=== PATIENT | male | born 1985 | race African-American/Black ===

== ENCOUNTER 2022-04-23 16:06 | Emergency (ER) | payer OTHER, SELFPAY ==
[2022-04-23 16:19] VITALS: BP 132/81; PULSE 85; RESP 14; TEMP 36.8; O2SAT 100; BMI 25.0
--- NOTE | 2022-04-23 16:34 | DI.US.S_ITS ---
PROCEDURE: US SCROTUM INDICATIONS: LEFT TESTICULAR PAIN TECHNIQUE: Real-time scanning was performed of the scrotum and testicles, with image documentation. Color and pulse Doppler interrogation was performed of both testicles. COMPARISON: None. FINDINGS: Right: Testicle is normal in size at 3.7 x 2.1 x 2.7 cm, and demonstrates multiple echogenic foci within it. Epididymis is normal in overall size and morphology. No hydrocele or varicoceles. Overlying scrotal skin is normal in thickness. Left: Testicle is normal in size at 3.7 x 2.4 x 2.8 cm. Multiple echogenic foci can be seen within the left testicle. The left epididymal tail is prominent and corresponds to the palpable abnormality. No hydrocele. Overlying scrotal skin is normal in thickness. Doppler: Color and pulse Doppler demonstrate normal and symmetric arterial flow in both testicles. There is an apparent large left-sided varicocele. Prominent left-sided scrotal vessels can be seen. IMPRESSION: Negative for testicular torsion. The testicular vascularity appears normal and symmetric. Apparent large left-sided varicocele. Prominent left-sided epididymal tail, which corresponds to the palpable abnormality. 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 Dictated by: Blaze Macario M.D. on 04/23/2022 at 18:03 Approved by: Blaze Macario M.D. on 04/23/2022 at 18:05
--- NOTE | 2022-04-23 16:34 | DI.US.S_ITS ---
PROCEDURE: US ABDOMEN LIMITED INDICATIONS: LEFT GROIN PAIN - please evaluate for HERNIA TECHNIQUE: Real-time focused scanning was performed of the abdomen, with image documentation. COMPARISON: [facility], , US SCROTUM, 04/23/2022, 18:19. FINDINGS: Scanning is performed of the left groin, including with Valsalva maneuver. No findings of hernia are seen. IMPRESSION: Negative for left groin hernia. Dictated by: Blaze Macario M.D. on 04/23/2022 at 18:06 Approved by: Blaze Macario M.D. on 04/23/2022 at 18:07
[2022-04-23 17:21] LABS: RBC Urine 0-1/HPF (0-5/HPF); WBC Urine 5-10/HPF (0-5/HPF)
[2022-04-23 17:22] LABS: Amorphous Sediment Urine 1+; Bacteria Urine Occasional (0-1); Mucus Urine 1+ (Negative); Squamous Epithelial Cell Urine 0-1 /HPF (0-5/HPF)
[2022-04-23 17:23] LABS: Culture Indicated Urine Specimen Cultured; Sperm Urine FEW NON-MOTIL
--- NOTE | 2022-04-23 18:51 | ED.MALEGU ---
HPI - Male Genitourinary General Chief complaint: Urogenital-Male Stated complaint: tender lt testicle, hx of cyst Time Seen by Provider: 04/23/22 18:04 Source: patient Mode of arrival: Ambulatory History of Present Illness HPI Narrative: Patient is a 36-year-old male with no past medical history presenting today with left testicular pain. He said it started abruptly around 130 or 2:00 p.m. after intercourse. He said it was nothing unusual but feels like it is red and swollen. No female discharge in concern for STD. His quite sensitive to touch. Related Data Previous Rx's Medication Instructions Recorded hydrocodone 5 mg-acetaminophen 325 1 tab PO Q6H PRN pain #10 tabs 04/23/22 mg tablet Allergies Allergy/AdvReac Type Severity Reaction Status Date / Time No Known Drug Allergies Allergy Verified 04/23/22 16:26 Review of Systems Review of Systems Narrative: GENERAL: Denies chills,fever HEENT: Denies throat pain RESPIRATORY: Denies dyspnea, cough, wheezing CARDIOVASCULAR: Denies chest pain, palpitations : See HPI GASTROINTESTINAL: Denies nausea, vomiting MUSCULOSKELETAL: Denies extremity pain, injury SKIN: No rash, no laceration, no pruritus NEUROLOGIC: Denies weakness, dizziness, headache, numbness 8 point review of systems is negative except for those stated above and HPI Patient History Social History Smoking Status: Current every day smoker Smoking Status: Current every day smoker tobacco type: cigarettes alcohol intake frequency: holidays/special occasions only Substance Use Type: marijuana Exam Initial Vital Signs Initial Vital Signs: Vital Signs Temperature 98.2 F 04/23/22 16:19 Pulse Rate 85 04/23/22 16:19 Respiratory Rate 14 04/23/22 16:19 Blood Pressure 132/81 04/23/22 16:19 Pulse Oximetry 100 04/23/22 16:19 Oxygen Delivery Method 04/23/22 16:19 GENERAL: Well-appearing, well-nourished and in no acute distress. CARDIOVASCULAR: peripheral pulses in tact, cap refill <2 sec RESPIRATORY: No respiratory distress, speaks in full sentences without difficulty ABDOMEN: Soft, nontender, no guarding or rebound : Nurse Debbie in room, left testicle is tender scrotum area is slightly swollen minimally erythematous no obvious abscess or fluctuation no hernia EXTREMITIES: Normal range of motion, no clubbing or edema. Neurovascularly intact NEUROLOGICAL: Cranial nerves II through XII grossly intact. Normal gait and speech. SKIN: Warm, dry, no petechiae, no rashes or lesions. Course Orders Ordered: Discontinued Medications Ketorolac Tromethamine (Ketorolac 30 Mg/Ml Vial) 30 mg IM NOW ONE Stop: 04/23/22 18:52 Last Admin: 04/23/22 19:21 Dose: 30 mg Documented By: AP Vital Signs Vital signs: Vital Signs - 8 hr 04/23/22 16:19 Temperature 98.2 F Pulse Rate 85 Respiratory Rate 14 Blood Pressure 132/81 Pulse Oximetry 100 Oxygen Delivery Method Room Air MDM - Male Genitourinary Lab Data Labs: Lab Results 04/23/22 Range/Units 16:42 Urine RBC 0-1/hpf (0-5/HPF) Urine WBC 5-10/hpf H (0-5/HPF) Ur Squamous Epith Cells 0-1 /hpf (0-5/HPF) Amorphous Sediment 1+ Urine Bacteria Occasional (0-1) (None) Urine Mucus 1+ H (Negative) Urine Sperm Few non-motil Ur Culture Indicated? Specimen cultured Urine Dip Bedside Urine Glucose Negative Bedside Urine Bilirubin - Negative Bedside Urine Ketone - Negative Urine Specific [place] 1.025 Bedside Urine Occult Blood +/- Bedside Urine pH 6.0 Bedside Urine Protein + 30 Bedside Urine Urobilinogen - Negative Bedside Urine Nitrite - Negative Bedside Urine Leukocytes +/- 15 Esterase Imaging Data US scrotum: Radiologist's Impression: Signed Patient: Khadar Baca MR#: [id number] : 1985 Acct:[id number] Age/Sex: 36 / M Date of Service: 04/23/22 Loc: ED Accession Number: [id number] ?? Procedure: US scrotum Ordering Provider: Elvi Leblanc P.A-C PROCEDURE:? US SCROTUM ? INDICATIONS:? LEFT TESTICULAR PAIN ? TECHNIQUE:? Real-time scanning was performed of the scrotum and testicles, with image documentation.? Color and pulse Doppler interrogation was performed of both testicles.? ? COMPARISON:? None. ? FINDINGS:? ? Right:? Testicle is normal in size at 3.7 x 2.1 x 2.7 cm, and demonstrates multiple echogenic foci within it.? Epididymis is normal in overall size and morphology.? No hydrocele or varicoceles.? Overlying scrotal skin is normal in thickness.? ? Left:? Testicle is normal in size at 3.7 x 2.4 x 2.8 cm.? Multiple echogenic foci can be seen within the left testicle.? ? The left epididymal tail is prominent and corresponds to the palpable abnormality.? No hydrocele.? Overlying scrotal skin is normal in thickness.? ? Doppler:? Color and pulse Doppler demonstrate normal and symmetric arterial flow in both testicles.? There is an apparent large left-sided varicocele. ? Prominent left-sided scrotal vessels can be seen. ? ? IMPRESSION:? Negative for testicular torsion.? The testicular vascularity appears normal and symmetric. ? Apparent large left-sided varicocele. ? Prominent left-sided epididymal tail, which corresponds to the palpable abnormality. ? 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 ? Dictated by: Blaze Macario M.D. on 04/23/2022 at 18:03 ? ? US - abdomen: Radiologist's Impression: Signed Patient: Khadar Baca MR#: [id number] : 1985 Acct:[id number] Age/Sex: 36 / M Date of Service: 04/23/22 Loc: ED Accession Number: [id number] ?? Procedure: US abdomen limited Ordering Provider: Elvi Leblanc P.A-C PROCEDURE: US ABDOMEN LIMITED ? INDICATIONS:? LEFT GROIN PAIN - please evaluate for HERNIA ? TECHNIQUE:? Real-time focused scanning was performed of the abdomen, with image documentation.? ? COMPARISON:? [facility], US SCROTUM, 04/23/2022, 18:19. ? FINDINGS:? Scanning is performed of the left groin, including with Valsalva maneuver.? No findings of hernia are seen. ? ? ? IMPRESSION:? Negative for left groin hernia. ? ? Dictated by: Blaze Macario M.D. on 04/23/2022 at 18:06 ? ? MDM Narrative Medical decision making narrative: Patient is complaining of left testicular pain which started suddenly after intercourse. No obvious erythema abscess or torsion. Ultrasound does reveal large varicocele. Recommend supportive care and follow-up with urology. Is given Toradol and pain medication Discharge Plan Departure Patient Disposition: Home Clinical Impression: Varicocele Instructions: DI for Varicocele Activity Restrictions/Additional Instructions: *You have been diagnosed with varicocele *What to do: At this time you have an enlarged vein in left testicle causing pain. Recommend supportive underwear, may require surgery could years is quite large. Will need follow-up with Urology. You may attempt to try ice it may help *Continue to take medications as directed Ibuprofen 600 mg every 6 hours if needed for [id number] pain [place] 1 tablet every 6 hours if needed for severe pain *Follow up with your primary care provider in 2-3 days or call [phone] Follow-up with Dr. Holland urology, call for appointment tomorrow *Return to ER if you should have increasing pain swelling redness or any new, worsening or concerning symptoms CONTROLLED SUBSTANCE DISCHARGE (Narcotoic/benzodiazepine/Flexeril/Phenergan) 1. You have been prescribed narcotic medications, it does have acetaminophen/Tylenol/paracetamol in it, DO NOT TAKE MORE THAN 4,00mg in 24 hours of Tylenol. TRAMADOL DOES NOT CONTAIN TYLENOL 2. Please understand that we cannot provide further refills of narcotics, benzodiazepines or controlled substances through the ED and her pain management will need to be through your provider. 3. While on these medications you cannot drive or operate heavy machinery. 4. You cannot sign legal documents or perform any duties such as this. 5. As long as you're taking opiate pain medications he should also be taking a stool softener such as Colace, Dulcolax, MiraLAX or prune juice, to help avoid constipation. Prescriptions: New hydrocodone-acetaminophen 5-325 mg tablet 1 tab PO Q6H PRN (Reason: pain) Qty: 10 0RF Referrals: Sourav Holland MD [Physician] - Stand Alone Forms: Work Release Note Visit Report Forms: Patient Portal/API
[2022-04-23] MEDS: KETOROLAC 30 MG/ML VIAL IM (19:21)
== END 2022-04-23 19:29 | disposition home or self-care (01) ==
PROVIDERS: Emergency Medicine; Emergency Provider Emergency Medicine
DX: I86.1 Scrotal varices (principal)
CPT/HCPCS: 76705; 76870; 81003; 81015; 87086; 93976; 96372; 99283; J1885

== ENCOUNTER 2022-05-04 17:50 | Emergency (ER) | payer OTHER, SELFPAY ==
[2022-05-04 17:59] VITALS: BP 121/71; PULSE 66; RESP 16; TEMP 36.5; O2SAT 100; BMI 26.6
== END 2022-05-04 19:15 | disposition left against medical advice (07) ==
PROVIDERS: Emergency Provider Emergency Medicine
DX: N50.819 Testicular pain, unspecified (principal)
CPT/HCPCS: 99281

== ENCOUNTER 2022-09-13 18:29 | Emergency (ER) | payer OTHER, SELFPAY ==
[2022-09-13 18:53] VITALS: BP 120/71; PULSE 80; RESP 16; TEMP 36.9; O2SAT 95; BMI 23.5
--- NOTE | 2022-09-13 19:03 | DI.US.S_ITS ---
PROCEDURE: US SCROTUM INDICATIONS: LEFT TESTICULAR SWELLING TECHNIQUE: Real-time scanning was performed of the scrotum and testicles, with image documentation. Color and pulse Doppler interrogation was performed of both testicles. COMPARISON: [facility], , US SCROTUM, 04/23/2022, 18:19. FINDINGS: Right: Testicle measures 3.7 x 2.1 x 3.0 cm. Diffuse echogenic foci are redemonstrated within the testicle consistent with microlithiasis. No discrete mass identified. Epididymis is normal in overall size and morphology. There is a minimal hydrocele. Any falls last 10 ascending ago began strong No varicoceles. Overlying scrotal skin is normal in thickness. Left: Testicle measures 4.7 x 2.0 x 2.9 cm. Diffuse echogenic foci are redemonstrated within the testicle consistent with microlithiasis. No discrete mass identified. Epididymis is normal in overall size and morphology. No hydrocele. There is a left hydrocele measuring up to 0.4 cm. Overlying scrotal skin is normal in thickness. Doppler: Color and pulse Doppler demonstrate normal and symmetric arterial flow in both testicles. IMPRESSION: 1. Prominent left varicocele redemonstrated. 2. No evidence of testicular torsion. 3. Diffuse bilateral testicular microlithiasis redemonstrated. The findings are commonly benign but have been reported in association with seminomas. No discrete testicular mass identified on the current study. Dictated by: Getachew Oliveira M.D. on 09/13/2022 at 20:24 Approved by: Getachew Oliveira M.D. on 09/13/2022 at 20:28
--- NOTE | 2022-09-13 21:25 | ED_ITS ---
HPI - General Adult General Chief complaint: Urogenital-Male Stated complaint: Swollen and painful genitials Time Seen by Provider: 09/13/22 19:52 Source: patient Mode of arrival: Ambulatory History of Present Illness HPI narrative: Patient is a 36 old male who has a known history of a left-sided varicocele. He has been seen by Urology. He was told by the urologist that if the varicocele ever returned that he would need to have surgery on this. Proximally 3 days ago he stated that he sneezed and afterwards has had swelling and some discomfort to the left testicle that is consistent with the varicocele. He is not having any problems urinating. Related Data Previous Rx's Medication Instructions Recorded hydrocodone 5 mg-acetaminophen 325 1 tab PO Q6H PRN pain #10 tabs 04/23/ mg tablet Allergies Allergy/AdvReac Type Severity Reaction Status Date / Time No Known Drug Allergies Allergy Verified 09/13/22 18:59 Review of Systems Gastrointestinal Gastrointestinal: Reports system reviewed and no additional complaints, except as documented Genitourinary Genitourinary: Reports system reviewed and no additional complaints, except as documented Integumentary/Breasts Skin/Breast: Reports system reviewed and no additional complaints, except as documented Patient History Social History Smoking Status: Current every day smoker Smoking Status: Current every day smoker tobacco type: cigarettes alcohol intake frequency: holidays/special occasions only Substance Use Type: marijuana Exam Initial Vital Signs Initial Vital Signs: Vital Signs Temperature 98.4 F 09/13/22 18:53 Pulse Rate 80 09/13/22 18:53 Respiratory Rate 16 09/13/22 18:53 Blood Pressure 120/71 09/13/22 18:53 Pulse Oximetry 95 09/13/22 18:53 Oxygen Delivery Method 09/13/22 18:53 GI Inspection: normal to inspection Palpation: soft, No firm and No tender External: normal external exam Penis: normal penis Scrotum: not erythematous, no scrotal swelling and varicocele on the left Testes: normal Skin General: no rashes or lesions noted Neuro General: patient alert, patient awake and moves all extremities Extrem General: capillary refill normal Course Orders Ordered: ED Orders 09/13/22 19:03 US scrotum Stat Vital Signs Vital signs: Vital Signs - 8 hr 09/13/22 18:53 Temperature 98.4 F Pulse Rate 80 Respiratory Rate 16 Blood Pressure 120/71 Pulse Oximetry 95 Oxygen Delivery Method Room Air Medical Decision Making Medical Records Medical records reviewed: Yes I reviewed the patient's medical records. Lab Data Lab results reviewed: Yes I reviewed the patient's lab results. Labs: Urine Dip Bedside Urine Glucose Negative Bedside Urine Bilirubin - Negative Bedside Urine Ketone - Negative Urine Specific [place] 1.010 Bedside Urine Occult Blood - Negative Bedside Urine pH 7 Bedside Urine Protein +/- 15 Bedside Urine Urobilinogen - Negative Bedside Urine Nitrite - Negative Bedside Urine Leukocytes - Negative Esterase Point of care testing: Urine Dip Bedside Urine Glucose Negative Bedside Urine Bilirubin - Negative Bedside Urine Ketone - Negative Urine Specific [place] 1.010 Bedside Urine Occult Blood - Negative Bedside Urine pH 7 Bedside Urine Protein +/- 15 Bedside Urine Urobilinogen - Negative Bedside Urine Nitrite - Negative Bedside Urine Leukocytes - Negative Esterase Imaging Data scrotal US: Radiologist's Impression: PROCEDURE:? US SCROTUM ? INDICATIONS:? LEFT TESTICULAR SWELLING ? TECHNIQUE:? Real-time scanning was performed of the scrotum and testicles, with image documentation.? Color and pulse Doppler interrogation was performed of both testicles.? ? COMPARISON:[facility], , US SCROTUM, 04/23/2022, 18:19. ? FINDINGS:? ? Right:? Testicle measures 3.7 x 2.1 x 3.0 cm.? Diffuse echogenic foci are redemonstrated within the testicle consistent with microlithiasis.? No discrete mass identified.? Epididymis is normal in overall size and morphology.? There is a minimal hydrocele.? Any falls last 10 ascending ago began strong? No varicoceles.? Overlying scrotal skin is normal in thickness.? ? Left:? Testicle measures 4.7 x 2.0 x 2.9 cm.? Diffuse echogenic foci are redemonstrated within the testicle consistent with microlithiasis.? No discrete mass identified.? Epididymis is normal in overall size and morphology.? No hydrocele.? There is a left hydrocele measuring up to 0.4 cm. Overlying scrotal skin is normal in thickness.? ? Doppler:? Color and pulse Doppler demonstrate normal and symmetric arterial flow in both testicles.? ? IMPRESSION:? ? 1. Prominent left varicocele redemonstrated. ? 2. No evidence of testicular torsion. ? 3. Diffuse bilateral testicular microlithiasis redemonstrated.? The findings are commonly benign but have been reported in association with seminomas. No discrete testicular mass identified on the current study. MDM Narrative Medical decision making narrative: Urinalysis is unremarkable. Ultrasound does show varicocele but no testicular torsion. His exam was consistent with a varicocele. Discussed with the patient that he will need to follow-up with urology. He has a urologist that he is seen in the past and I recommended that he contact the urologist office for follow-up however he was given contact information for a local urologist he would prefer. He is not have any problems urinating. We discussed conservative measures that he could do at home for his symptoms. He was given return precautions. He expressed understanding and agreement. Discharge Plan Departure Patient Disposition: Home Clinical Impression: Left varicocele Instructions: DI for Varicocele Activity Restrictions/Additional Instructions: I recommend that you contact a urologist for a follow-up. Also recommend supportive clothing and Tylenol/ibuprofen for any discomfort. No restrictions on activities other than avoiding activities that make the discomfort worse. Re turn to the emergency department for new symptoms. Prescriptions: No Action hydrocodone-acetaminophen 5-325 mg tablet 1 tab PO Q6H PRN (Reason: pain) Qty: 10 0RF Referrals: Sourav Holland MD [Physician] - Stand Alone Forms: Patient Portal/API, Work Release Note
--- NOTE | 2022-09-13 21:40 | PC.NURSE ---
seen and evaluated per
== END 2022-09-13 21:41 | disposition home or self-care (01) ==
PROVIDERS: Emergency Provider Emergency Medicine
DX: I86.1 Scrotal varices (principal)
CPT/HCPCS: 76870; 81003; 93975; 99283

== ENCOUNTER 2022-11-27 16:00 | Emergency (ER) | payer OTHER, SELFPAY ==
[2022-11-27 16:16] VITALS: BP 120/68; PULSE 73; RESP 16; TEMP 37; O2SAT 100; BMI 26.6
[2022-11-27 17:00] LABS: Bacteria Urine Occasional (0-1); RBC Urine 1-5/HPF (0-5/HPF); WBC Urine 1-5/HPF (0-5/HPF)
[2022-11-27 17:01] LABS: Mucus Urine 1+ (Negative)
--- NOTE | 2022-11-27 17:45 | ED.MALEGU ---
HPI - Male Genitourinary <Jerald Maza PA-C - Last Filed: 11/27/22 19:26> General Chief complaint: Urogenital-Male Stated complaint: Blood clot in urine, pink urine, pain/trobbing Time Seen by Provider: 11/27/22 17:34 Source: patient Mode of arrival: Ambulatory History of Present Illness HPI Narrative: This is a 37-year-old male presents emergency department due to reported blood in his urine this morning. Patient states that when he was urinating this morning he noticed some kind of blood clot come from his penis. He also reports a dull aching pain to his bilateral flanks as well as left groin area. Denies any nausea, vomiting, fevers, or any other concerning signs or symptoms. Related Data Previous Rx's Medication Instructions Recorded hydrocodone 5 mg-acetaminophen 325 1 tab PO Q6H PRN pain #10 tabs 04/23/22 mg tablet Allergies Allergy/AdvReac Type Severity Reaction Status Date / Time No Known Drug Allergies Allergy Verified 09/13/22 18:59 Review of Systems <Jerald Maza PA-C - Last Filed: 11/27/22 19:26> Review of Systems Narrative: GENERAL: Denies chills, fatigue, malaise, fever, sweats. HEENT: Denies sinus pain, ear pain, sore throat, difficulty swallowing, dizziness. RESPIRATORY: Denies dyspnea, cough, wheezing, hemoptysis, sputum. CARDIOVASCULAR: Denies chest pain, palpitations, orthopnea, edema, GASTROINTESTINAL: Reports left-sided abdominal pain. Denies nausea, vomiting, abdominal pain, diarrhea, constipation, melena. : Reports hematuria, Denies dysuria, frequency, incontinence, , urinary retention. MUSCULOSKELETAL: Reports bilateral flank pain otherwise denies weakness, joint pain, or bony pain SKIN: Denies rash, skin lesions, or other NEUROLOGIC: Denies weakness, headache, numbness, change in speech, confusion, seizures, incoordination. PSYCHIATRIC: No concerning psychosocial issues. 12 point review of systems is negative except for those stated above Patient History <Jerald Maza PA-C - Last Filed: 11/27/22 19:26> Social History Smoking Status: Current every day smoker Smoking Status: Current every day smoker tobacco type: cigarettes alcohol intake frequency: holidays/special occasions only Substance Use Type: marijuana Exam <Jerald Maza PA-C - Last Filed: 11/27/22 19:26> Narrative Exam Narrative: GENERAL: Well-developed patient, in mild distress. HEAD: Atraumatic. Normocephalic. EYES: Pupils equal round and reactive. Extraocular motions intact. No scleral icterus. No injection or drainage. ENT: Nose without bleeding, purulent drainage. Throat without erythema, tonsillar hypertrophy or exudate. Airway patent. NECK: Trachea midline. Non tender CARDIOVASCULAR: Regular rate and rhythm without murmurs, gallops, or rubs. RESPIRATORY: Clear to auscultation. Breath sounds equal bilaterally. No wheezes, rales, or rhonchi. GASTROINTESTINAL: Abdomen soft, mild tenderness to palpation to left lower quadrant, nondistended. EXTREMITIES: No edema or joint tenderness. BACK: Nontender without deformity or crepitance. Mild bilateral flank tenderness to palpation. NEURO: AOx3. SKIN: No rash or erythema of visible areas Initial Vital Signs Initial Vital Signs: Vital Signs Temperature 98.6 F 11/27/22 16:16 Pulse Rate 73 11/27/22 16:16 Respiratory Rate 16 11/27/22 16:16 Blood Pressure 120/68 11/27/22 16:16 Pulse Oximetry 100 11/27/22 16:16 Oxygen Delivery Method Room Air 11/27/22 16:16 <Zack Hernandez MD - Last Filed: 12/05/22 03:28> Initial Vital Signs Initial Vital Signs: Vital Signs Temperature 98.6 F 11/27/22 16:16 Pulse Rate 73 11/27/22 16:16 Respiratory Rate 16 11/27/22 16:16 Blood Pressure 120/68 11/27/22 16:16 Pulse Oximetry 100 11/27/22 16:16 Oxygen Delivery Method Room Air 11/27/22 16:16 Course <Jerald Maza PA-C - Last Filed: 11/27/22 19:26> Orders Ordered: ED Orders 11/27/22 16:20 Urine Culture Stat Urine Microscopic Stat 11/27/22 17:56 CT kidney ureter bladder (KUB) Stat 11/27/22 18:35 CBC Auto Diff [Complete Blood Count AUTO DIFF] Stat CMP [Comprehensive Metabolic Panel] Stat Vital Signs Vital signs: Vital Signs - 8 hr 11/27/22 16:16 11/27/22 19:23 Temperature 98.6 F Pulse Rate 73 72 Respiratory Rate 16 Blood Pressure 120/68 119/73 Pulse Oximetry 100 100 Oxygen Delivery Method Room Air Room Air <Zack Hernandez MD - Last Filed: 12/05/22 03:28> Orders Ordered: ED Orders 11/27/22 16:20 Urine Culture Stat Urine Microscopic Stat 11/27/22 17:56 CT kidney ureter bladder (KUB) Stat 11/27/22 18:35 CBC Auto Diff [Complete Blood Count AUTO DIFF] Stat CMP [Comprehensive Metabolic Panel] Stat Vital Signs Vital signs: Vital Signs - 8 hr 11/27/22 16:16 11/27/22 19:23 Temperature 98.6 F Pulse Rate 73 72 Respiratory Rate 16 Blood Pressure 120/68 119/73 Pulse Oximetry 100 100 Oxygen Delivery Method Room Air Room Air MDM - Male Genitourinary <Jerald Maza PA-C - Last Filed: 11/27/22 19:26> Lab Data 11/27/22 19:04 11/27/22 18:40 Labs: Lab Results 11/27/22 11/27/22 11/27/22 Range/Units 16:20 18:40 19:04 WBC 5.3 (4.5-11.0) X10^3/uL RBC 5.05 (4.5-5.9) X10^6/uL Hgb 13.1 L (13.5-17.5) g/dL Hct 39.7 L (41-53) % MCV 78.6 L (80-100) fL MCH 25.9 L (26-34) PG MCHC 33.0 (30-36) % RDW 13.5 (11.6-14.8) % Plt Count 152 (150-400) X10^3/uL Neut % (Auto) 41.8 L (50-75) % Lymph % (Auto) 46.3 H (25-40) % Gentry % (Auto) 8.1 (3-14) % Eos % (Auto) 3.4 (2-4) % Baso % (Auto) 0.4 (0-2) % Neut # (Auto) 2200 (6685-7498) /uL Lymph # (Auto) 2500 (0366-5402) /uL Gentry # (Auto) 400 (0-900) /uL Eos # (Auto) 200 (0-450) /uL Baso # (Auto) 0 (0-100) /uL Sodium 137 (137-145) mmol/L Potassium 4.7 (3.4-5.1) mmol/L Chloride 105 (98-107) mmol/L Carbon Dioxide 24 (22-32) mmol/L BUN 15 (9-20) mg/dL Creatinine 0.76 (0.66-1.25) mg/dL Estimated GFR > 60 (>60) mL/min BUN/Creatinine Ratio 19.7 (6-22) Glucose 90 (70-100) mg/dL Calcium 9.2 (8.4-10.2) mg/dL Total Bilirubin 0.6 (0.2-1.3) mg/dL AST 36 (17-59) IU/L ALT 33 (<50) IU/L Alkaline Phosphatase 40 (38-126) U/L Total Protein 7.2 (6.3-8.2) g/dL Albumin 4.4 (3.5-5.0) g/dL Globulin 2.8 (1.7-4.1) g/dL Albumin/Globulin Ratio 1.6 (1.0-2.8) Urine RBC 1-5/hpf (0-5/HPF) Urine WBC 1-5/hpf (0-5/HPF) Urine Bacteria Occasional (0-1) (None) Urine Mucus 1+ H (Negative) Urine Dip Bedside Urine Glucose Negative Bedside Urine Bilirubin - Negative Bedside Urine Ketone - Negative Urine Specific Ralph 1.030 Bedside Urine Occult Blood - Negative Bedside Urine pH 5.5 Bedside Urine Protein - Negative Bedside Urine Urobilinogen - Negative Bedside Urine Nitrite - Negative Bedside Urine Leukocytes +/- [address] scan - abdomen/pelvis: Radiologist's Impression: [address] [address] [address] Scan Report Signed Patient: Khadar Baca MR#: [id number] : 1985 Acct:[id number] Age/Sex: 37 / M Date of Service: 11/27/22 Loc: ED Accession Number: [id number] ?? Procedure: CT kidney ureter bladder (KUB) Ordering Provider: Link,Jerald P.A-C PROCEDURE:? CT KIDNEY URETER BLADDER (KUB) ? INDICATIONS:? Hematuria and flank pain ? TECHNIQUE:? Axial sections were acquired from the lung bases to the pubic symphysis.? Coronal and sagittal reformats were performed.? For radiation dose reduction, the following was used: ?automated exposure control, adjustment of mA and/or kV according to patient size.? ? COMPARISON:? None. ? FINDINGS:? Image quality:? Good ? Lower chest:? Unremarkable ? Solid organs:? Not well evaluated without intravenous contrast.? The liver is unremarkable.? Gallbladder is unremarkable.? No pathologic biliary ductal dilation or pancreatic ductal dilation.? No splenomegaly.? No adrenal nodules. ? No calcified intrarenal stones.? No hydronephrosis.? No obstructing bladder ureter stones identified. ? Vessels and lymph nodes:? No abdominal aortic aneurysm.? No pathologic adenopathy by size criteria. ? Bowel and peritoneum:? Mildly distended stomach.? No small bowel obstruction.? Above average fecal loading.? No pathologic ascites or drainable abscess identified. ? Body wall:? Unremarkable ? Pelvis:? Bladder is unremarkable, without radiopaque calculi.? Prostate is not well evaluated on this study, unremarkable. ? Bones:? No acute or suspicious osseous finding. ? IMPRESSION:? No radiopaque stones or hydronephrosis.? No acute abdominal pelvic abnormality.? The stomach is mildly distended and there is above average fecal loading, without small bowel obstruction. ? In the setting of hematuria, consider further evaluation with CT IVP and cystoscopy. ? Dictated by: Angel Turner M.D. on 11/27/2022 at 18:29 ? ? Approved by: Angel Turner M.D. on 11/27/2022 at 18:33 ? MDM Narrative Medical decision making narrative: MDM * differential diagnosis includes but not limited to kidney stone, urethral injury, UTI * Prior records reviewed: Patient was seen for a left varicocele about 3 months ago. Has been seen by Urology. Ultrasound was taken which showed no torsion. Patient was recommended follow-up with Urology. * My lab interpretation: CBC and CMP unremarkable. UA shows no evidence of UTI. * My imgaing interpretation: CT showed no evidence of kidney stones or other abnormalities. * Clinical Decision Rules/Scores evaluated: None * Independent discussions with: None ED Course: This is a 37-year-old male presents emergency department due to acute hematuria. UA showed no evidence of UTI. CT KUB was ordered which was negative for any kidney stones. Patient may have recently passed stone. Patient has not established urologist already for a chronic varicocele. Recommended follow up with Urology for follow up if the hematuria continues. CBC and CMP unremarkable. Shared Decision Making: Discussed plan with the patient who is comfortable with the plan. Social Considerations: None Disposition: Discharged to home <Zack Hernandez MD - Last Filed: 12/05/22 03:28> Lab Data Labs: Lab Results 11/27/22 11/27/22 11/27/22 Range/Units 16:20 18:40 19:04 WBC 5.3 (4.5-11.0) X10^3/uL RBC 5.05 (4.5-5.9) X10^6/uL Hgb 13.1 L (13.5-17.5) g/dL Hct 39.7 L (41-53) % MCV 78.6 L (80-100) fL MCH 25.9 L (26-34) PG MCHC 33.0 (30-36) % RDW 13.5 (11.6-14.8) % Plt Count 152 (150-400) X10^3/uL Neut % (Auto) 41.8 L (50-75) % Lymph % (Auto) 46.3 H (25-40) % Gentry % (Auto) 8.1 (3-14) % Eos % (Auto) 3.4 (2-4) % Baso % (Auto) 0.4 (0-2) % Neut # (Auto) 2200 (2756-1912) /uL Lymph # (Auto) 2500 (4845-4927) /uL Gentry # (Auto) 400 (0-900) /uL Eos # (Auto) 200 (0-450) /uL Baso # (Auto) 0 (0-100) /uL Sodium 137 (137-145) mmol/L Potassium 4.7 (3.4-5.1) mmol/L Chloride 105 (98-107) mmol/L Carbon Dioxide 24 (22-32) mmol/L BUN 15 (9-20) mg/dL Creatinine 0.76 (0.66-1.25) mg/dL Estimated GFR > 60 (>60) mL/min BUN/Creatinine Ratio 19.7 (6-22) Glucose 90 (70-100) mg/dL Calcium 9.2 (8.4-10.2) mg/dL Total Bilirubin 0.6 (0.2-1.3) mg/dL AST 36 (17-59) IU/L ALT 33 (<50) IU/L Alkaline Phosphatase 40 (38-126) U/L Total Protein 7.2 (6.3-8.2) g/dL Albumin 4.4 (3.5-5.0) g/dL Globulin 2.8 (1.7-4.1) g/dL Albumin/Globulin Ratio 1.6 (1.0-2.8) Urine RBC 1-5/hpf (0-5/HPF) Urine WBC 1-5/hpf (0-5/HPF) Urine Bacteria Occasional (0-1) (None) Urine Mucus 1+ H (Negative) Urine Dip Bedside Urine Glucose Negative Bedside Urine Bilirubin - Negative Bedside Urine Ketone - Negative Urine Specific Ralph 1.030 Bedside Urine Occult Blood - Negative Bedside Urine pH 5.5 Bedside Urine Protein - Negative Bedside Urine Urobilinogen - Negative Bedside Urine Nitrite - Negative Bedside Urine Leukocytes +/- 15 Esterase Discharge Plan Departure Patient Disposition: Home Clinical Impression: Hematuria Instructions: DI for Hematuria Activity Restrictions/Additional Instructions: Thank you for coming to the [facility] today. I am glad that your blood in urine has improved. The urinalysis showed no evidence of a urinary tract infection. The CT showed no evidence of any kind of kidney stone or other abnormality. I recommend you follow-up with your established urologist for further evaluation if the blood in her urine continues. I hope you feel better soon. Prescriptions: No Action hydrocodone-acetaminophen 5-325 mg tablet 1 tab PO Q6H PRN (Reason: pain) Qty: 10 0RF Referrals: Pedro Sequeira MD [Primary Care Provider] - Stand Alone Forms: Patient Portal/API, Work Release Note <Zack Hernandez MD - Last Filed: 12/05/22 03:28> Cosign ED Attending Cosignature Attestation: I was immediately available in the department for consultation. ?This documentation has been reviewed and I agree with assessment and plan. Supervised by Zack Hernandez MD
--- NOTE | 2022-11-27 17:56 | DI.CT.S_ITS ---
PROCEDURE: CT KIDNEY URETER BLADDER (KUB) INDICATIONS: Hematuria and flank pain TECHNIQUE: Axial sections were acquired from the lung bases to the pubic symphysis. Coronal and sagittal reformats were performed. For radiation dose reduction, the following was used: automated exposure control, adjustment of mA and/or kV according to patient size. COMPARISON: None. FINDINGS: Image quality: Good Lower chest: Unremarkable Solid organs: Not well evaluated without intravenous contrast. The liver is unremarkable. Gallbladder is unremarkable. No pathologic biliary ductal dilation or pancreatic ductal dilation. No splenomegaly. No adrenal nodules. No calcified intrarenal stones. No hydronephrosis. No obstructing bladder ureter stones identified. Vessels and lymph nodes: No abdominal aortic aneurysm. No pathologic adenopathy by size criteria. Bowel and peritoneum: Mildly distended stomach. No small bowel obstruction. Above average fecal loading. No pathologic ascites or drainable abscess identified. Body wall: Unremarkable Pelvis: Bladder is unremarkable, without radiopaque calculi. Prostate is not well evaluated on this study, unremarkable. Bones: No acute or suspicious osseous finding. IMPRESSION: No radiopaque stones or hydronephrosis. No acute abdominal pelvic abnormality. The stomach is mildly distended and there is above average fecal loading, without small bowel obstruction. In the setting of hematuria, consider further evaluation with CT IVP and cystoscopy. Dictated by: Angel Turner M.D. on 11/27/2022 at 18:29 Approved by: Angel Turner M.D. on 11/27/2022 at 18:33
[2022-11-27 19:03] LABS: Alanine Aminotransferase 33 IU/L (<50); Albumin 4.4 g/dL (3.5-5.0); Albumin Globulin Ratio 1.6 (1.0-2.8); Alkaline Phosphatase 40 U/L (38-126); Aspartate Aminotransferase 36 IU/L (17-59); BUN Creatinine Ratio 19.7 (6-22); Bilirubin Total 0.6 mg/dL (0.2-1.3); Blood Urea Nitrogen 15 mg/dL (9-20); Calcium 9.2 mg/dL (8.4-10.2); Carbon Dioxide 24 mmol/L (22-32); Chloride 105 mmol/L (98-107); Estimated Glomerular Filt Rate > 60 mL/min (>60); Globulin 2.8 g/dL (1.7-4.1); Glucose 90 mg/dL (70-100); Sodium 137 mmol/L (137-145); Total Protein 7.2 g/dL (6.3-8.2)
[2022-11-27 19:05] LABS: HEMOLYSIS 109 (0-50)
[2022-11-27 19:06] LABS: Potassium 4.7 mmol/L (3.4-5.1)
[2022-11-27 19:13] LABS: Add Manual Diff / Slide Review NO; Basophils Absolute Auto 0 /uL (0-100); Basophils Percent Auto 0.4 % (0-2); Eosinophils Absolute Auto 200 /uL (0-450); Eosinophils Percent Auto 3.4 % (2-4); Hematocrit 39.7 % (41-53); Hemoglobin 13.1 g/dL (13.5-17.5); Lymphocytes Absolute Auto 2500 /uL (1100-4500); Lymphocytes Percent Auto 46.3 % (25-40); Mean Corpuscular Hemoglobin 25.9 PG (26-34); Mean Corpuscular Volume 78.6 fL (80-100); Monocytes Absolute Auto 400 /uL (0-900); Monocytes Percent Auto 8.1 % (3-14); Neutrophils Absolute Auto 2200 /uL (1500-7000); Neutrophils Percent Auto 41.8 % (50-75); Platelet Count 152 X10^3/uL (150-400); Red Blood Cell Count 5.05 X10^6/uL (4.5-5.9); Red Cell Distribution Width 13.5 % (11.6-14.8); White Blood Cell Count 5.3 X10^3/uL (4.5-11.0)
[2022-11-27 19:23] VITALS: BP 119/73; PULSE 72; O2SAT 100
== END 2022-11-27 19:25 | disposition home or self-care (01) ==
PROVIDERS: Emergency Medicine; Emergency Provider Physician Assistant Medical; PCP Family Medicine
DX: R31.9 Hematuria, unspecified (principal); R10.9 Unspecified abdominal pain
CPT/HCPCS: 74176; 80053; 81003; 81015; 85025; 87086; 99282; 99284

== ENCOUNTER 2023-02-12 16:20 | Emergency (ER) | payer OTHER, SELFPAY ==
[2023-02-12 16:25] VITALS: BP 124/82; PULSE 70; RESP 16; TEMP 36.6; O2SAT 98; BMI 25.0
--- NOTE | 2023-02-12 17:17 | ED.BACK ---
HPI - Back Pain/Injury <NINA Smyth - Last Filed: 02/12/23 17:49> General Chief Complaint: Back Pain/Injury Stated Complaint: back injury Time Seen by Provider: 02/12/23 17:17 Source: patient History of Present Illness HPI Narrative: This is a 37-year-old male presents to the emergency department complaining left-sided posterior rib / back pain after he was wire cable that was connected to cream. Patient reports a had an episode where his body jerked any felt weak in the knees, complains of numbness from down and has left-sided rib pain right pain breath and is reproducible with palpation. Patient went to the walk-in clinic was does muscle sprain and presents to the emergency department for imaging. Patient is able to take a deep breath, denies shortness of breath, denies weakness in his extremities, is ambulatory at this time, standing currently. Related Data Previous Rx's Medication Instructions Recorded cyclobenzaprine 5 mg tablet 5 mg PO TID PRN muscle spasm #20 02/12/23 tabs ibuprofen 600 mg tablet 600 mg PO Q6H PRN fever or pain 02/12/23 #30 tabs lidocaine 5 % topical patch 1 patch topical DAILY PRN 02/12/23 (Lidoderm) posterior rib pain #15 ea methocarbamol 500 mg tablet 500 mg PO Q8H PRN muscle spasm, 02/12/23 pain #20 tabs Allergies Allergy/AdvReac Type Severity Reaction Status Date / Time No Known Drug Allergies Allergy Verified 02/12/23 15:43 Review of Systems <NINA Smyth - Last Filed: 02/12/23 17:49> Review of Systems ROS Unobtainable: All systems reviewed & are unremarkable except as noted in HPI and below Patient History <NINA Smyth - Last Filed: 02/12/23 17:49> Social History Smoking Status: Current every day smoker Smoking Status: Current every day smoker tobacco type: cigarettes alcohol intake frequency: holidays/special occasions only Substance Use Type: marijuana Exam <NINA Smyth - Last Filed: 02/12/23 17:49> Narrative Exam Narrative: Reviewed vitals signs and nursing notes. General: Pleasant, sitting upright, in no acute distress, well groomed, afebrile HEENT: symmetrical facial expressions, moist mucous membranes, neck is supple CV: regular rate and rhythm, warm extremities Respiratory: normal work of breathing, without tachypnea or hypoxia. GI: abdomen soft, nondistended, without CVA tenderness bilaterally. MSK: moves all extremities, no weakness, normal tone, ambulatory without deficit Skin: brisk capillary refill, without rash or wound Neuro: clear speech and normal cognition, A&O x3, GCS 15, no focal motor or sensation deficits Initial Vital Signs Initial Vital Signs: Vital Signs Temperature 97.8 F 02/12/23 16:25 Pulse Rate 70 02/12/23 16:25 Respiratory Rate 16 02/12/23 16:25 Blood Pressure 124/82 02/12/23 16:25 Pulse Oximetry 98 02/12/23 16:25 Oxygen Delivery Method Room Air 02/12/23 16:25 <Zack Hernandez MD - Last Filed: 02/18/23 12:08> Initial Vital Signs Initial Vital Signs: Vital Signs Temperature 97.8 F 02/12/23 16:25 Pulse Rate 70 02/12/23 16:25 Respiratory Rate 16 02/12/23 16:25 Blood Pressure 124/82 02/12/23 16:25 Pulse Oximetry 98 02/12/23 16:25 Oxygen Delivery Method Room Air 02/12/23 16:25 Course <NINA Smyth - Last Filed: 02/12/23 17:49> Orders Ordered: Discontinued Medications Ketorolac Tromethamine (Ketorolac 30 Mg/Ml Vial) 15 mg IM NOW ONE Stop: 02/12/23 17:20 Last Admin: 02/12/23 17:37 Dose: 15 mg Documented By: GEORGINA Lidocaine (Lidocaine Patch 1 Each Adh..Patch) 1 each TOP NOW ONE Stop: 02/12/23 17:20 Last Admin: 02/12/23 17:37 Dose: 1 each Documented By: GEORGINA Methocarbamol (Methocarbamol 500 Mg Tablet) 500 mg PO NOW ONE Stop: 02/12/23 17:22 Last Admin: 02/12/23 17:37 Dose: 500 mg Documented By: GEORGINA Vital Signs Vital signs: Vital Signs - 8 hr 02/12/23 16:25 Temperature 97.8 F Pulse Rate 70 Respiratory Rate 16 Blood Pressure 124/82 Pulse Oximetry 98 Oxygen Delivery Method Room Air <Zack Hernandez MD - Last Filed: 02/18/23 12:08> Orders Ordered: Discontinued Medications Ketorolac Tromethamine (Ketorolac 30 Mg/Ml Vial) 15 mg IM NOW ONE Stop: 02/12/23 17:20 Last Admin: 02/12/23 17:37 Dose: 15 mg Documented By: GEORGINA Lidocaine (Lidocaine Patch 1 Each Adh..Patch) 1 each TOP NOW ONE Stop: 02/12/23 17:20 Last Admin: 02/12/23 17:37 Dose: 1 each Documented By: GEORGINA Methocarbamol (Methocarbamol 500 Mg Tablet) 500 mg PO NOW ONE Stop: 02/12/23 17:22 Last Admin: 02/12/23 17:37 Dose: 500 mg Documented By: GEORGINA Vital Signs Vital signs: Vital Signs - 8 hr 02/12/23 16:25 Temperature 97.8 F Pulse Rate 70 Respiratory Rate 16 Blood Pressure 124/82 Pulse Oximetry 98 Oxygen Delivery Method Room Air MDM - Back Pain/Injury <NINA Smyth - Last Filed: 02/12/23 17:49> Lab Data Labs: Urine Dip Bedside Urine Glucose Negative Bedside Urine Bilirubin - Negative Bedside Urine Ketone - Negative Urine Specific [place] 1.015 Bedside Urine Occult Blood - Negative Bedside Urine pH 6.5 Bedside Urine Protein - Negative Bedside Urine Urobilinogen - Negative Bedside Urine Nitrite - Negative Bedside Urine Leukocytes - Negative Esterase Imaging Data Chest x-ray: Radiologist's Impression: PROCEDURE:? XR RIBS LT 2V ? INDICATIONS:? pain posterior ribs ? TECHNIQUE:? 2 views of the left ribs were acquired.? ? COMPARISON:? None. ? FINDINGS:? ? Surgical changes and devices:? None.? ? Bones and chest wall:? No fractures or dislocations.? No suspicious bony lesions.? Overlying soft tissues appear unremarkable.? ? Lungs and pleura:? The visualized lung appears clear.? No pleural effusions or pneumothorax are visible.? ? IMPRESSION:? No visualized acute fracture or dislocation. However, if clinical concern and/or pain persist, short interval imaging followup in 7-10 days is recommended, as occult injury cannot be definitively excluded. ? ? Dictated by: Leana Hardin M.D. on 02/12/2023 at 17:45 ? ? Approved by: Leana Hardin M.D. on 02/12/2023 at 17:45 ? [facility] Narrative Medical decision making narrative: Chief Complaint: Left-sided midthoracic/posterior rib pain Multiple etiologies for patient's complaint considered including, but not limited to: muscular strain, sprain, costochondritis, rib fracture, pneumothorax I have independently reviewed the patient's vital signs and nursing notes as well as prior records if available. Plan: ribs x-ray, lidocaine patch, Toradol, methocarbamol for pain control patient was examined at the walk-in clinic, came over to the emergency department for imaging and wishes for further evaluation. On my exam, he had tenderness of the paraspinalMusculature to the left thoracic and lumbar spine, mild tenderness, no step-offs, no thoracic or lumbar spine tenderness to palpation. Patient is ambulatory with steady gait, Without weakness, without incontinence, without abnormal reflexes. This is most likely muscular sprain, no deformity, shortness of breath, or other symptoms. x-rays negative for acute fracture, pneumothorax, or other suspicious bony lesions. RecommendPatient follow-up PCP as needed, use topical modalities for pain control and ibuprofen and Tylenol as needed. He was prescribed methocarbamol to use for muscle spasm. Social considerations that may affect disposition: none Questions are addressed and there is agreement with the plan and for follow-up . I consulted with the ED attending physician Dr. Hernandez as needed for higher level of care considerations and they were available for discussion and recommendations regarding plan of care and diagnostic testing. Patient is appropriate for outpatient management. <Zack Hernandez MD - Last Filed: 02/18/23 12:08> Lab Data Labs: Urine Dip Bedside Urine Glucose Negative Bedside Urine Bilirubin - Negative Bedside Urine Ketone - Negative Urine Specific [place] 1.015 Bedside Urine Occult Blood - Negative Bedside Urine pH 6.5 Bedside Urine Protein - Negative Bedside Urine Urobilinogen - Negative Bedside Urine Nitrite - Negative Bedside Urine Leukocytes - Negative Esterase Discharge Plan Departure Patient Disposition: Home Clinical Impression: Work related injury, Muscle strain Instructions: DI for Muscle Strain, DI for Rib Contusion, DI for Back Spasm Activity Restrictions/Additional Instructions: *You have been diagnosed with A muscle strain/ sprain, of paraspinal musculature left upper back. This may be painful for at least a week. 10s to gradually improve. Please stay hydrated and then take ibuprofen and Tylenol every 6 hours as needed for pain, you may take a muscle relaxer- methocarbamol as needed for muscle spasm or tightness. If you can reach, use lidocaine patches this will be helpful to relieve pain of the soft tissues and allow you to work without feeling as poorly. Try to continue with gentle mobility and range of motion. There are no obvious fractures, no dislocated ribs, nothing concerning found on x-ray today although your symptoms may last for a few days before improving. The ribs appear to be in place and there are no fractures, no visible lung injury either. Hope this starts feeling better soon. *What to do: *Please continue to take your regular medications as directed. [ x] New medication prescriptions sent to your pharmacy: [ [facility]] [ ] New medication written as a paper prescription [ ] No new medications given *Please call and schedule follow up with your primary care provider in 2-3 days, at least for an update. Let them know you were seen in the Emergency Department for the above problem. We will electronically transmit a record of today's note if your PCP or specialist is in our system. *If you do not have a primary care provider please contact [phone] to establish care with one of the [facility] primary care providers. *Return to the Emergency Department for worsening symptoms, inability to keep liquids down, fever greater than 101F, chills, or other concerning symptom. Prescriptions: New ibuprofen 600 mg tablet 600 mg PO Q6H PRN (Reason: fever or pain) Qty: 30 0RF methocarbamol 500 mg tablet 500 mg PO Q8H PRN (Reason: muscle spasm, pain) Qty: 20 0RF lidocaine [Lidoderm] 5 % adhesive patch,medicated 1 patch topical DAILY PRN (Reason: posterior rib pain) Qty: 15 0RF Rx Instructions: leave on most painful area for up to 12 hrs No Action cyclobenzaprine 5 mg tablet 5 mg PO TID PRN (Reason: muscle spasm) Qty: 20 0RF Referrals: Pedro Sequeira MD [Primary Care Provider] - Stand Alone Forms: Patient Portal/API, Work Release Note <Zack Hernandez MD - Last Filed: 02/18/23 12:08> Cosign ED Attending Cosignature Attestation: I was immediately available in the department for consultation. ?This documentation has been reviewed and I agree with assessment and plan. Supervised by Zack Hernandez MD
--- NOTE | 2023-02-12 17:18 | DI.RAD.S_ITS ---
PROCEDURE: XR RIBS LT 2V INDICATIONS: pain posterior ribs TECHNIQUE: 2 views of the left ribs were acquired. COMPARISON: None. FINDINGS: Surgical changes and devices: None. Bones and chest wall: No fractures or dislocations. No suspicious bony lesions. Overlying soft tissues appear unremarkable. Lungs and pleura: The visualized lung appears clear. No pleural effusions or pneumothorax are visible. IMPRESSION: No visualized acute fracture or dislocation. However, if clinical concern and/or pain persist, short interval imaging followup in 7-10 days is recommended, as occult injury cannot be definitively excluded. Dictated by: Leana Hardin M.D. on 02/12/2023 at 17:45 Approved by: Leana Hardin M.D. on 02/12/2023 at 17:45
--- NOTE | 2023-02-12 17:33 | PC.NURSE ---
Patient reports injury at work that chris his back brought him to his knees. Reports pain in left paraspinal muscle. No c-spine tenderness. Patient states pain is worse with deep breath and movement
[2023-02-12] MEDS: methocarbamoL 500 MG TABLET PO (17:37)
[2023-02-12] MEDS: KETOROLAC 30 MG/ML VIAL 15 MG IM (17:37)
[2023-02-12] MEDS: LIDOCAINE PATCH 1 EACH ADH..PATCH TOP (17:37)
[2023-02-12 18:03] VITALS: BP 118/62; PULSE 66; RESP 18; O2SAT 98
== END 2023-02-12 18:04 | disposition home or self-care (01) ==
PROVIDERS: Emergency Provider Nurse Practitioner Critical Care Medicine; PCP Family Medicine
DX: S29.012A Strain of muscle and tendon of back wall of thorax, initial encounter (principal); S20.212A Contusion of left front wall of thorax, initial encounter; X50.1XXA Overexertion from prolonged static or awkward postures, initial encounter; Y99.0 Civilian activity done for income or pay
CPT/HCPCS: 71100; 81003; 96372; 99283; 99284; J1885